=== PATIENT | female | born 1955 | race Caucasian/White ===

== ENCOUNTER 2019-06-05 08:58 | Day surgery (SDC) | payer BC ==
[2019-06-05] VITALS (9 sets, daily range): BP systolic 88–109; BP diastolic 53–67
[~2019-06-05] VITALS: Ht 157.5 cm; Wt 55.3 kg
--- NOTE | 2019-06-05 09:38 | History & Physical ---
History of Present Illness General Date patient seen: Jun 05, 2019 Present Illness HPI 63 year old female was referred to myself for evaluation of left upper back mass. States she has had it for many years now but has noted it growing. States causes discomfort given location with laying down and clothing. Given growing would like it removed. Otherwise well. Patient seen in office, evaluated, and scheduled for 06/05/2019 Patient History History Provided By: Patient Healthcare decision maker N Resuscitation status Advanced Directive on File Past Medical/Surgical History Past Medical/Surgical History: (1) Mass of torso Review of Systems Review of Symptoms General ROS: no weight loss or fever Psychological ROS: no depression or mood changes, no memory loss Ophthalmic ROS: no visual changes or eye irritation ENT ROS: no nasal congestion, hearing loss, dizziness Allergy and Immunology ROS: no allergic symptoms or urticaria Hematological and Lymphatic ROS: no swollen glands, unusual bleeding or bruising Endocrine ROS: no polyuria, polydipsia, weight changes, temperature intolerance Respiratory ROS: no cough, shortness of breath, or wheezing Cardiovascular ROS: no chest pain or dyspnea on exertion Gastrointestinal ROS: denies abdominal pain, no bright red blood in stool. Musculoskeletal ROS: no myalgias or arthralgias Neurological ROS: no TIA or stroke symptoms Dermatological ROS: no new or changing skin lesions, rashes or pruritis Physical Exam Physical Exam General appearance: alert, cooperative, no distress, appears stated age Head: Normocephalic, without obvious abnormality, atraumatic Eyes: conjunctivae/corneas clear. PERRL, EOM's intact. Fundi benign Throat: Lips, mucosa, and tongue normal. Teeth and gums normal Neck: supple, symmetrical, trachea midline, no adenopathy, thyroid: not enlarged, symmetric, no tenderness/mass/nodules, no carotid bruit and no JVD Lungs: clear to auscultation bilaterally Heart: regular rate and rhythm, S1, S2 normal, no murmur, click, rub or gallop Abdomen: soft, non-tender. Bowel sounds normal. No masses, no organomegaly Extremities: extremities normal, atraumatic, no cyanosis or edema Pulses: 2+ and symmetric Skin: Skin color, texture, turgor normal. No rashes or lesions Neurologic: Grossly normal Assessment/Plan Problem List: (1) Mass of torso Assessment & Plan: Left upper back mass just medial to the scapula. mobile 8cm x 6cm deep excision indicated and recommended consent obtained npo iv fluids to OR ICD Codes: R22.2 - Localized swelling, mass and lump, trunk SNOMED: [id number] Regino Rowe Jun 05, 2019 09:38
--- NOTE | 2019-06-05 09:40 | Pre-Procedure Note/Attestation ---
Pre-Procedure Note/Attestation Complete Prior to Procedure Planned Procedure: left Procedure Narrative: excision of upper back mass Indications for Procedure Pre-Operative Diagnosis: left upper back mass Attestation I attest that I discussed the nature of the procedure; its benefits; risks and complications; and alternatives (and the risks and benefits of such alternatives ), prior to the procedure, with the patient (or the patient's legal u.s. representative). I attest that, if there was a reasonable possibility of needing a blood transfusion, the patient (or the patient's legal u.s. representative) was given the [facility] standardized written summary, pursuant to the [place] Blood Safety Act ([place] Health and Safety Code # 1645, as amended). I attest that I re-evaluated the patient just prior to the surgery and that there has been no change in the patient's H&P, except as documented below: Regino Rowe Jun 05, 2019 09:40
[2019-06-05] MEDS ORDERED: Bacitracin Oint 15gm Tube TOPIC ONE (09:45)
[2019-06-05] MEDS ORDERED: NS Irrig 1000ml IRRIG ONE ×2 (09:56→10:23)
[2019-06-05] MEDS ORDERED: VITAMIN D5000 UNI1 PO (09:57)
[2019-06-05] MEDS ORDERED: CALCIUM WITH M1 EACH PO (09:57)
[2019-06-05] MEDS ORDERED: LR 1000ml ONE (10:00)
[2019-06-05] MEDS ORDERED: Sterile Water Irrig 1000ml IRRIG ONE (10:00)
[2019-06-05] MEDS ORDERED: Propofol 200mg/20ml IV ONE (10:22)
[2019-06-05] MEDS ORDERED: fentaNYL 100 mcg/2 mL IV ONE (10:22)
[2019-06-05] MEDS ORDERED: Lidocaine 1% MPF 10mg/ml 5ml ONE (10:22)
[2019-06-05] MEDS ORDERED: Midazolam 2mg/2ml Inj ONE (10:22)
[2019-06-05] MEDS ORDERED: DiphenhydrAMINE 50mg/ml Inj ONE (10:27)
--- NOTE | 2019-06-05 11:13 | Anethesia Preoperative Eval ---
Anesthesia Pre-op PMH/ROS General Date of Evaluation: Jun 05, 2019 Anesthesiologist: Chetan ASA Score: ASA 1 Mallampati Score Class I : Soft palate, uvula, fauces, pillars visible Class II: Soft palate, uvula, fauces visible Class III: Soft palate, base of uvula visible Class IV: Only hard plate visible Mallampati Classification: Class I Surgeon: Soledad Diagnosis: Back mass Surgical Procedure: Excision back mass Anesthesia History: none Family History: no anesthesia problems Allergies: Uncoded Allergies: aspir (Allergy, Unknown, 06/05/19) ITP Medications: see eMAR Patient NPO?: Yes NPO Date: Jun 05, 2019 NPO Time: 22:00 Past Medical History Cardiovascular: Denies: HTN, CAD, MO, valve dz, arrhythmia, other Pulmonary: Denies: asthma, COPD, JAKE, other Gastrointestinal/Genitourinary: Denies: GERD, CRI, ESRD, other Neurologic/Psychiatric: Denies: dementia, CVA, depression/anxiety, TIA, other Endocrine: Denies: DM, hypothyroidism, steroids, other HEENT: Denies: cataract (L), cataract (R), glaucoma, [place] (L), [place] (R), other Hematology/Immune: Denies: anemia, DVT, bleeding disorder, other Musculoskeletal/Integumentary: Denies: OA, RA, DJD, DDD, edema, other PSxH Narrative: T&A Anesthesia Pre-op Phys. Exam Physician Exam Last Vital Signs Date Time Temp Pulse Resp B/P (MAP) Pulse Ox O2 Delivery O2 Flow Rate FiO2 06/05/19 09:53 96.8 66 20 108/67 96 Room Air Constitutional: NAD Cardiovascular: RRR Respiratory: CTA Airway Exam Mallampati Score: Class I MO: full ROM: full Anesthesia Pre-op A/P Labs see chart Risk Assessment & Plan Assessment: ASA I Plan: MAC Status Change Before Surgery: No Pre-Antibiotics Drug: Ancef 1g Given Within 1 Hr of Incision: Yes Val Man MD Jun 05, 2019 11:13
--- NOTE | 2019-06-05 11:14 | Immediate Post-Op Evaluation ---
Immediate Post-Op Evalulation Immediate Post-Op Evalulation Procedure: Back mass excision Date of Evaluation: Jun 05, 2019 Time of Evaluation: 11:14 IV Fluids: 400 Blood Products: 0 Estimated Blood Loss: 0 Urinary Output: 0 Blood Pressure Systolic: 88 Blood Pressure Diastolic: 61 Pulse Rate: 59 Respiratory Rate: 16 O2 Sat by Pulse Oximetry: 98 Temperature (Fahrenheit): 97.1 Pain Score (1-10): 0 Nausea: No Vomiting: No Complications 0 Patient Status: awake, reacts, patent, none Hydration Status: adequate Drug: Ancef 1g Given Within 1 Hr of Incision: Yes Val Man MD Jun 05, 2019 11:14
--- NOTE | 2019-06-05 11:14 | 48 Hour Post Anesthesia Eval ---
Post Anesthesia Evaluation Procedure: Back mass excision Date of Evaluation: Jun 05, 2019 Airway: patent Nausea: No Vomiting: No Pain Intensity: 0 Hydration Status: adequate Cardiopulmonary Status: at baseline Mental Status/LOC: patient returned to baseline Post-Anesthesia Complications: 0 Follow-up care needed: ready to discharge Val Man MD Jun 05, 2019 11:14
--- NOTE | 2019-06-05 12:05 | NUR ---
Ice pack to operative site in place. No swelling or redness noted to wound site.
--- NOTE | 2019-06-05 12:14 | Brief Operative Note ---
Immediate Post Operative Note Operative Note Pre-op Diagnosis: left upper back mass Procedure: excision of left upper back mass with adjacent tissue transfer for closure Post-op Diagnosis: same as pre-op Surgeon: payton Anesthesiologist: rosa Anesthesia: local, MAC Specimen: yes Complications: none Condition: stable Fluids: see records Estimated Blood Loss: minimal Drains: none Implant(s) used?: No Regino Rowe Jun 05, 2019 12:14
[2019-06-05] MEDS ORDERED: Tylenol #3 tab (300mg/30mg) ORAL PRN (15:30)
[2019-06-05] MEDS ORDERED: HYDROcodone/Acetamin 5/325 tab ORAL PRN (15:30)
[2019-06-05] MEDS ORDERED: D5 1/2NS 1,000 ML IV SCH (15:30)
[2019-06-05] MEDS ORDERED: HYDROmorphone 1mg/ml Carpuject SUBQ PRN (15:30)
--- NOTE | 2019-06-05 17:15 | Operative Note - Dictated ---
DATE OF OPERATION: 06/05/2019 PREOPERATIVE DIAGNOSIS: Left upper back mass. POSTOPERATIVE DIAGNOSIS: Left upper back mass/lipoma. OPERATION PERFORMED: 1. Excision of deep left upper back mass 8 cm x 6 cm x 3 cm. 2. Adjacent soft tissue transfer for complex closure. ATTENDING SURGEON: Regino Rowe M.D. ROTARY SAW OPERATOR: None. ANESTHESIOLOGIST: Dr. Chetan Barrett. ANESTHESIA: Local plus MAC. ESTIMATED BLOOD LOSS: Minimal. IV FLUIDS: Please see anesthesia records. COMPLICATIONS: None. DRAINS: None. SPECIMENS: Back mass sent to pathology for review. DRAINS: None. WOUND CLASSIFICATION: Class I. INDICATIONS FOR PROCEDURE: This is a 63-year-old female, who was referred to my office for evaluation of a left upper back mass. The patient states she has had it for some years now, but over the past two months, it has grown and become more uncomfortable. It is located in the left upper back between the spine and the scapula. It is mobile and does interfere with her clothing as well as discomfort while lying. Given this, excision was indicated and recommended. On evaluation, the mass was noted to be fairly deep underneath the subcutaneous tissue and therefore decision was made to perform excision in the hospital. Risks, benefits, and alternatives of the surgery were discussed with the patient in detail, expressed understanding, and consented to surgery. Given the location and size, adjacent tissue transfer was going to be necessary, which was discussed with the patient for appropriate closure. OPERATIVE NOTE: The patient taken to the operating room and placed on the operating table in a right lateral decubitus position with all bony prominences well padded. SCDs were placed. Preoperative time-out taken identifying the patient, procedure, and operative surgical staff. The patient was given sedation by the anesthesiologist until comfortable. The upper back was prepped and draped in standard surgical fashion. The mass was identified and local anesthetic was infiltrated in a proposed skin incision. A transverse skin incision was made at the apex of the mass. Incision was carried down through the dermis, subcutaneous tissue with electrocautery. Passive adjacent tissue just at the level of fascia and the muscle. There was a 8 cm x 6 cm x 3 cm mass that was excised circumferentially in whole with electrocautery. Once this was completed, the wound bed was inspected. Hemostasis achieved with electrocautery. At this time, there was a fair amount of defect deep identified just abutting muscles and therefore the risk of seroma formation or abnormal defect, decision made to adjacent tissue transfer for appropriate closure. The adjacent subcutaneous tissue and fascia were mobilized inferiorly in a rectangular fashion and slowly brought about over the defect. The adjacent tissue was then sutured in place using 3-0 Vicryl interrupted sutures. Once appropriate coverage of the defect area was identified and good closure was noted and the remaining wound was reapproximated in a two-layer fashion beginning with 3-0 Vicryl sutures followed by interrupted 3-0 Vicryl dermal sutures. The skin incision was then reapproximated with 4-0 Monocryl subcuticular running suture. The wound was cleansed and skin glue and Steri-Strips were applied. The patient tolerated the procedure well, was taken to the postanesthesia care unit in stable condition with follow up in one week. Regino Rowe M.D. DR: AARTI JOB#: [id number] CC:
== END 2019-06-05 12:45 | disposition home or self-care (01) ==
LOC: SUR 08:58
DX: D17.1 Benign lipomatous neoplasm of skin and subcutaneous tissue of trunk (principal); Z79.82 Long term (current) use of aspirin
CPT/HCPCS: 14000; J0690; J1200; J2250; J2704; J3010; 94003; 94150